=== PATIENT | female | born 1980 | race Hispanic/Latino ===

== ENCOUNTER 2019-05-02 13:29 | Inpatient (IN) | payer BC, OTHER ==
[~2019-05-02] VITALS: Ht 154.9 cm; Wt 73.5 kg
--- OUTSIDE RECORDS SUMMARY | 2019-05-02 13:35 | XMS REPORT ---
[facility] Address Unknown Phone Unavailable Care Team Providers Care Ward Service Supervisor Name Role Phone Unavailable Unavailable Payers Payer Name Policy Type Policy Number Effective Date Expiration Date Problems This patient has no known problems. Allergies, Adverse Reactions, Alerts Allergy Name Allergy Type Status Severity Reaction(s) Onset Date Inactive Date Treating Clinician Comments ibuprofen DA Active SV 2019-04-17 00:00:00 No Known Allergies DA Active U 2016-01-16 00:00:00 Medications This patient has no known medications. Results Test Description Test Time Test Comments Text Results Atomic Results Result Comments BASIC METABOLIC PANEL 2019-04-19 06:38:00 SODIUM (test code=NA) 142 mmol/L 136-145 POTASSIUM (test code=K) 4.0 mmol/L 3.5-5.1 CHLORIDE (test code=CL) 111.0 mmol/L 98-107 CARBON DIOXIDE (test code=CO2) 24.0 mmol/L 21-32 ANION GAP (test code=GAP) 11.0 10-20 GLUCOSE (test code=GLU) 98 mg/dL 74-106 BLOOD UREA NITROGEN (test code=BUN) 12 mg/dL 7-18 GLOMERULAR FILTRATION RATE (test code=GFR) > 60 mL/min >=60 Estimated GFR by using Modified MDRD formula.Chronic kidney disease is defined as either kidney damageor GFR <60 mL/min/1.73 m2 for >3 months. CREATININE (test code=CREAT) 0.70 mg/dL 0.55-1.02 Note change in reference range due to change in reagent. BUN/CREATININE RATIO (test code=BUN/CREA) 16.6 10-20 CALCIUM (test code=CA) 8.0 mg/dL 8.5-10.1 - CT ABD PELVIS W/O [id number] 19:32:00 Name: DIOGENES RALPH [facility] : 1980 Age/S: 39 / F [address] [facility] Unit #: [id number] Loc: [place] [address] Phys: Ruth Knutson MD Acct: [id number] Dis Date: Status: REG ER PHONE #: [phone] Exam Date: 04/17/20191927 FAX #: [phone] Reason: L flank pain EXAMS: CPT CODE: [id number] CT ABD PELVIS W/O CONT 33762 REASON FOR EXAM: L flank pain EXAM ORDER DATE: 04/17/2019 6:55 PM Ordering M.D.: Ruth Knutson MD PROCEDURE: - CT ABD PELVIS W/O CONT noncontrast axial CT images were acquired through the abdomen/pelvis at 5 mm intervals. Sagittal and coronal reformatted images were generated. Automated exposure control was utilized for this reduction. Phases of contrast: None COMPARISON: Noncontrast CT of the abdomen and pelvis July 20, 2016 FINDINGS: The absence of IV contrast limits sensitivity of this exam for the detection of soft tissue pathology Visualized thorax: Grossly normal Hepato biliary system: Decreased attenuation of the hepatic parenchyma relative t o the spleen suggest steatosis. Gallbladder is grossly within normal limit s Pancreas: Grossly normal Spleen: Grossly normal Adrenal glands: Grossly normal Genitourinary system: P unctate stones are present in both kidneys. There is also left-sided hydro ureteronephrosis, also seen on the prior examination. There is a stone in the distal left ureter () which measures 5 mm in size. Urinary bladder and reproductive organs are within normal limits. Gastroint estinal tract and appendix: Grossly normal Abdominal vascular stru ctures: Grossly normal Peritoneum and retroperitoneum: No free flu id or free air. No omental or mesenteric masses. No abnormal lymph nodes . PAGE 1 Signed Report (CO NTINUED) Name: DIOGENES RALPH [facility] : 1980 Age/S: 39 / F [address] Unit #: [id number] Loc: [place] [address] Phys: Ruth Kumar MD Acct: [id number] Dis Date: Status: REG ER P FARIDA #: [phone] Exam Date: 04/17/20191927 FAX #: [phone] Reason: L flank pain EX AMS: CPT CODE: [id number] CT A BD PELVIS W/O CONT 35710 <Continued> Musculoskeletal structures and abdominal wall: Grossly normal IMPRESSION: Distal left ureteral 5 mm stone with ipsilateral hydro ureteronephrosis suggesting ureteral obstruction. Additional pun ctate stones are present in both kidneys. Steatosis of the liver. at 193 Reported and signed by: Daryn Berumen MD CC: Priyank Uribe; Ruth Knutson MD Technologist:Zeb Montes, RT(R)(CT) CTDI: DLP: Trnscb Date/Time: 04/17/2019 (1931) [email or web address] Orig Print D/T: S: 04/17/2019 (1934) PAGE 2 Signed Report UR HCG [id number] 19:01:00* Test Item Value Reference Range Comments UR HCG QUAL (test code=HCGQLU) NEGATIVE This HCGQL test is NOT applicable for MALE patients.Check with nurse about probable order error.If Tumor Marker Test needed, nurse should order test "HCGTU"(Test #[id number]) URINALYSIS [id number] 19:00:00* Test Item Value Reference Range Comments UA COLOR (test code=COLU) Light-Yellow YELLOW UA APPEARANCE (test code=APPU) Cloudy CLEAR UA GLUCOSE DIPSTICK (test code=DGLUU) NEGATIVE mg/dL NEGATIVE UA BILIRUBIN DIPSTICK (test code=BILU) NEGATIVE mg/dL NEGATIVE UA KETONE DIPSTICK (test code=KETU) NEGATIVE mg/dL NEGATIVE UA SPECIFIC GRAVITY (test code=SGU) 1.018 1.001-1.035 UA BLOOD DIPSTICK (test code=CHANDU) 1.0 mg/dL (3+) mg/dL NEGATIVE UA PH DIPSTICK (test code=CARLOS) 5.5 5.0-8.0 UA PROTEIN DIPSTICK (test code=PROU) 20 (Trace) mg/dL NEGATIVE UA UROBILINIOGEN DIPSTICK (test code=URO) Normal mg/dL NEGATIVE UA NITRITE DIPSTICK (test code=FLOR) NEGATIVE NEGATIVE UA LEUKOCYTE ESTERASE W REFLEX (test code=LEUUR) 250 Gibson/uL (2+) Gibson/uL NEGATIVE UA WBC (test code=WBCU) 11-20 per HPF 0-5 UA RBC (test code=RBCU) 50-100 #/HPF 0-5 UA EPITHELIAL CELLS (test code=EPIU) FEW per HPF FEW UA BACTERIA (test code=BACU) FEW #/HPF NONE UA HYALINE CAST (test code=HYALU) 3-5 #/LPF 0-5 UA MUCUS (test code=MUCU) FEW #/LPF FEW Urine Source? Clean CatchURINALYSIS [id number] 18:52:00* Test Item Value Reference Range Comments UA COLOR (test code=COLU) Light-Yellow YELLOW UA APPEARANCE (test code=APPU) Cloudy CLEAR UA GLUCOSE DIPSTICK (test code=DGLUU) NEGATIVE mg/dL NEGATIVE UA BILIRUBIN DIPSTICK (test code=BILU) NEGATIVE mg/dL NEGATIVE UA KETONE DIPSTICK (test code=KETU) NEGATIVE mg/dL NEGATIVE UA SPECIFIC GRAVITY (test code=SGU) 1.018 1.001-1.035 UA BLOOD DIPSTICK (test code=CHANDU) 1.0 mg/dL (3+) mg/dL NEGATIVE UA PH DIPSTICK (test code=CARLOS) 5.5 5.0-8.0 UA PROTEIN DIPSTICK (test code=PROU) 20 (Trace) mg/dL NEGATIVE UA UROBILINIOGEN DIPSTICK (test code=URO) Normal mg/dL NEGATIVE UA NITRITE DIPSTICK (test code=FLOR) NEGATIVE NEGATIVE UA LEUKOCYTE ESTERASE W REFLEX (test code=LEUUR) 250 Gibson/uL (2+) Gibson/uL NEGATIVE UA WBC (test code=WBCU) per HPF 0-5 UA RBC (test code=RBCU) per HPF 0-5 UA EPITHELIAL CELLS (test code=EPIU) per HPF Few UA BACTERIA (test code=BACU) per HPF NONE Urine Source? Clean CatchHCG SERUM [id number] 18:31:00* Test Item Value Reference Range Comments HCG SERUM BETA (test code=HCG) < 1.0 mIU/mL 0-3 INTERPRETATION:B-HCG LEVELS <5 SHOULD BE CONSIDERED "NEGATIVE." *WHEN BODERLINE RESULTS ARE ENCOUNTERED,PATIENT SAMPLESSHOULD BE REDRAWN 48 HOURS. 0-1 WEEKS AFTER CONCEPTION 5-50 MIU/ML1-2 WEEKS AFTER CONCEPTION 50-500 MIU/ML2-3 WEEKS AFTER CONCEPTION 100 -5,000 MIU/ML3-4 WEEKS AFTER CONCEPTION 500-10,000 MIU/ML4-5 WEEKS AFTER CONCEPTION 1000 -50,000 MIU/ML5-6 WEEKS AFTER CONCEPTION 10,000-100,000 MIU/ML6-8 WEEKS AFTER CONCEPTION 15,000- 200,000 MIU/ML2-3 MONTHS AFTER CONCEPTION 10,000-100,000 MIU/ML - US PREG 1ST [id number] 18:20:00 Name: DIOGENES RALPH [facility] : 1980 Age/S: 39 / F [address] [facility] Unit #: [id number] Loc: [place] [address] Phys: Ruth Knutson MD Acct: [id number] Dis Date: Status: REG ER PHONE #: [phone] Exam Date: 04/17/2019 0455 FAX #: [phone] Reason: POSITIVE EXAMS: CPT CODE: [id number] US PREG 1ST TRIMTR 81787 REASON FOR EXAM: POSITIVE EXAM ORDER DATE: 04/17/2019 5:24 PM Attending M.D.: Ruth Knutson MD PROCEDURE: - US PREG 1ST TRIMTR, - US PREG UT TRANSVAGINAL Technique: Grayscale images, color doppler, and spectral doppler images of the uterus and ovaries were obtained utilizing A transabdominal and transvaginal approach. Comparison study: CT abdomen and pelvis generated 19/07/2016 is available for review FINDINGS: The patient had a positive test at home Uterus: size: 7.2 x 4.2 x 4.0 cm using transabdominal measurements echogenicity/masses: Normal echogenicity with no myometrial masses endometrium: 3.7 mm Right ovary: size: 3.3 x 1.8 x 2.5 cm cysts/masses: None Doppler findings: Normal arterial and venous waveforms. adnexal masses: None Left ovary: size: 2.8 x 1.4 x 2.0 cm cysts/masses: None Doppler findings: Normal arterial and venous waveforms. adnexal masses: None Free fluid: No fluid seen in the cul-de-sac. IMPRESSION: No visualized int rauterine is seen however the last menstrual period was less t cesar 3 weeks prior (no visualized gestational sac may be due to early sta ge of ). Correlate with beta hCG. Otherwise sonographic ally unremarkable pelvis. PAGE 1 Signed Report (CONTINUED) Name: AMELIA RALPHKENRICKDONELL ANUPAM [facility] : 1980 Age/S: 39 / F [address] Unit #: [id number] Loc: [place] [address] Phys: Ruth Knutson MD Acct: [id number] Dis Date: Status: REG ER PHONE #: [phone] Exam Date: 04/17/2019 1737 FAX #: [phone] Reason: POSITIVE EXAMS: CPT CODE: [id number] US PREG 1ST TRIMTR 84079 < Continued> at 1820 Reported and signed by: Daryn Berumen MD CC: Ruth Knutson MD Technologist: JULI CEJA Trnscb Date/Time: 04/17/2019 (1819) [email or web address] Orig Print D/T: S: 04/17/2019 (1822) Probe: PAGE 2 Signed Report - US PREG UT [id number] 18:20:00 Name: AMELIA RALPHJOSHUALea ESPARZABO [facility] : 1980 Age/S: 39 / F [address] Unit #: [id number] Loc: [place] [address] Phys: Ruth Knutson MD Acct: [id number] Dis Date: Status: REG ER PHONE #: [phone] Exam Date: 04/17/2019 1737 FAX #: [phone] Reason: left lower quadrant pain, positive home preg te EXAMS: CPT CODE: [id number] US PREG UT TRANSVAGINAL 26033 REASON FOR EXAM: POSITIVE EXAM ORDER DATE: 04/17/2019 5:24 PM Attending M.D.: Ruth Knutson MD PROCEDURE: - US PREG 1ST TRIMTR, - US PREG UT TRANSVAGINAL Technique: Grayscale images, color doppler, and spectral doppler images of the uterus and ovaries were obtained utilizing A transabdominal and transvaginal approach. Comparison study: CT abdomen and pelvis generated 19/07/2016 is available for review FINDINGS: The patient had a positive test at home Uterus: size: 7.2 x 4.2 x 4.0 cm using transabdominal measurements echogenicity/masses: Normal echogenicity with no myometrial masses endometrium: 3.7 mm Right ovary: size: 3.3 x 1.8 x 2.5 cm cysts/masses: None Doppler findings: Normal arterial and venous waveforms. adnexal masses: None Left ovary: size: 2.8 x 1.4 x 2.0 cm cysts/masses: None Doppler findings: Normal arterial and venous waveforms. adnexal masses: None Free fluid: No fluid seen in the cul-de-sac. IMPRESSION: No visualized int rauterine is seen however the last menstrual period was less t cesar 3 weeks prior (no visualized gestational sac may be due to early sta ge of ). Correlate with beta hCG. Otherwise sonographic ally unremarkable pelvis. PAGE 1 Signed Report (CONTINUED) Name: DIOGENES RALPH [facility]ikel [facility]issy : 1980 Age/S: 39 / F [address] Unit #: [id number] Loc: [place] [address] Phys: Ruth Knutson MD Acct: [id number] Dis Date: Status: REG ER PHONE #: [phone] Exam Date: 04/17/2019 1737 FAX #: [phone] Reason: left lower quadrant pain, positive home preg te EXAMS: CPT CODE: [id number] US PREG UT TRANSVAGINAL 28874 < Continued> at 1820 Reported and signed by: Daryn Berumen MD CC: Ruth Knutson MD Technologist: JULI CEJA Trnscb Date/Time: 04/17/2019 (1819) [email or web address] Orig Print D/T: S: 04/17/2019 (1822) Probe: [id number] PAGE 2 Signed Report - US RETRO [id number] 18:17:00 Name: DIOGENES RALPH [facility] : 1980 Age/S: 39 / F [address] [facility] Unit #: [id number] Loc: [place] [address] Phys: Justin Knutson MD Acct: [id number] Di s Date: Status: REG ER PHONE #: [phone] Exam Date: 04/17/2019 1722 FAX #: Reason: L flank pain EXAMS: CPT CODE: [id number] US RETRO LTD 93841 REASON FOR EXAM: L flank pain EXAM ORDER DATE: 04/17/2019 3:36 PM Att ending M.D.: Ruth Knutson MD PROCEDURE: - US RETRO LTD Comparison: CT abdomen and pelvis July 20, 2016 FINDI NGS: Right kidney: parenchyma echogenicity: [facility] size: 11.3 x 5.2 x 4.0 cm. stones: Present. The largest stone is located in the midpole of the kidney and measures 8 mm in size cy sts/masses: none hydronephrosis: none Left kidney: p arenchyma echogenicity: Normal echogenicity size: 12.4 x 7.0 x 5.1 cm. stones: Present. The largest stone is located in the mid pole and janell ures 1.1 cm cysts/masses: none hydronephrosis: Moderate Urinary Bladder: Ureteral jets: Visualized bilaterally Intralumin al masses/debris: None Wall thickness: Normal Outpouching: None IMPRESSION: Nonobstructing stones in the right kidney. Stones within the left kidney with moderate hydronephrosis. Visualiza tion of the left ureteral jets indicates of the left ureter is patent. T his hydronephrosis was also present in 2017 (secondary to an obstructing ureteral stone at that time) and may be a chronic finding. PAGE 1 Signed Report (CONTINUED) Name: DIOGENES CAMPA [facility] : [birth year] Age/S: 39 / F [address] [facility] Unit #: [id number] Loc: [place] [address] Phys: Ruth Knutson MD Acct: [id number] Dis Date: Status: REG ER PHONE #: [phone] Exam Date: 04/17/2019 1722 FAX #: [phone] R shabnam: L flank pain EXAMS: CPT CODE: [id number] [facility] [address] <Continued> at 1817 Reported and signed by: Daryn Berumen MD CC: Ruth Knutson MD Technologist: JULI CEJA Trnscb Date/Time: 04/17/2019 (1816) [id number] Orig Print D/T: S: 04/17/2019 (1819) Probe: PAGE 2 Signed Re port BASIC METABOLIC [id number] 17:33:00* Test Item Value Reference Range Comments SODIUM (test code=NA) 142 mmol/L 136-145 POTASSIUM (test code=K) 3.9 mmol/L 3.5-5.1 CHLORIDE (test code=CL) 110.0 mmol/L 98-107 CARBON DIOXIDE (test code=CO2) 26.0 mmol/L 21-32 ANION GAP (test code=GAP) 9.9 10-20 GLUCOSE (test code=GLU) 97 mg/dL 74-106 BLOOD UREA NITROGEN (test code=BUN) 19 mg/dL 7-18 GLOMERULAR FILTRATION RATE (test code=GFR) > 60 mL/min >=60 Estimated GFR by using Modified MDRD formula.Chronic kidney disease is defined as either kidney damageor GFR <60 mL/min/1.73 m2 for >3 months. CREATININE (test code=CREAT) 0.90 mg/dL 0.55-1.02 Note change in reference range due to change in reagent. BUN/CREATININE RATIO (test code=BUN/CREA) 20.3 10-20 CALCIUM (test code=CA) 8.5 mg/dL 8.5-10.1 HEPATIC FUNCTION [id number] 17:33:00* Test Item Value Reference Range Comments TOTAL PROTEIN (test code=PROT) 8.1 gram/dL 6.4-8.2 ALBUMIN (test code=ALB) 3.9 g/dL 3.4-5.0 GLOBULIN (test code=GLOB) 4.2 gram/dL 2.7-4.2 ALBUMIN/GLOBULIN RATIO (test code=A/G) 0.9 0.75-1.50 BILIRUBIN TOTAL (test code=BILT) 0.30 mg/dL 0.0-1.0 BILIRUBIN DIRECT (test code=BILD) 0.08 mg/dL 0.0-0.20 SGOT/AST (test code=AST) 31 IUnit/L 15-37 SGPT/ALT (test code=ALT) 79 IUnit/L 12-78 ALKALINE PHOSPHATASE TOTAL (test code=ALKP) 100 IUnit/L 45-117 Note change in reference range due to change in reagent. [id number] 17:33:00* Test Item Value Reference Range Comments LIPASE (test code=LIP) 152 U/L 73.0-393.0 HCG SERUM [id number] 17:33:00* Test Item Value Reference Range Comments HCG SERUM QUAL (test code=HCGQL) NEGATIVE BASIC METABOLIC [id number] 17:30:00* Test Item Value Reference Range Comments SODIUM (test code=NA) 142 mmol/L 136-145 POTASSIUM (test code=K) 3.9 mmol/L 3.5-5.1 CHLORIDE (test code=CL) 110.0 mmol/L 98-107 CARBON DIOXIDE (test code=CO2) mmol/L 21-32 ANION GAP (test code=GAP) 10-20 GLUCOSE (test code=GLU) mg/dL 74-106 BLOOD UREA NITROGEN (test code=BUN) mg/dL 7-18 GLOMERULAR FILTRATION RATE (test code=GFR) mL/min >=60 CREATININE (test code=CREAT) mg/dL 0.55-1.02 BUN/CREATININE RATIO (test code=BUN/CREA) 10-20 CALCIUM (test code=CA) mg/dL 8.5-10.1 HEPATIC FUNCTION [id number] 17:30:00* Test Item Value Reference Range Comments TOTAL PROTEIN (test code=PROT) gram/dL 6.4-8.2 ALBUMIN (test code=ALB) g/dL 3.4-5.0 GLOBULIN (test code=GLOB) gram/dL 2.7-4.2 ALBUMIN/GLOBULIN RATIO (test code=A/G) 0.75-1.50 BILIRUBIN TOTAL (test code=BILT) mg/dL 0.0-1.0 BILIRUBIN DIRECT (test code=BILD) mg/dL 0.0-0.20 SGOT/AST (test code=AST) IUnit/L 15-37 SGPT/ALT (test code=ALT) IUnit/L 12-78 ALKALINE PHOSPHATASE TOTAL (test code=ALKP) IUnit/L 45-117 [id number] 17:30:00* Test Item Value Reference Range Comments LIPASE (test code=LIP) U/L 73.0-393.0 HCG SERUM [id number] 17:30:00* Test Item Value Reference Range Comments HCG SERUM QUAL (test code=HCGQL) NEGATIVE CBC W/O [id number] 17:14:00* Test Item Value Reference Range Comments WHITE BLOOD CELL (test code=WBC) 10.2 K/mm3 4.5-12.5 RED BLOOD CELL (test code=RBC) 4.72 mill/mm3 3.7-5.2 HEMOGLOBIN (test code=HGB) 12.9 gram/dL 11.5-15.5 HEMATOCRIT (test code=HCT) 40.8 % 36.0-46.0 MEAN CELL VOLUME (test code=MCV) 86.4 fL 80-98 MEAN CELL HGB (test code=MCH) 27.3 picogram 27.0-33.0 MEAN CELL HGB CONCETRATION (test code=MCHC) 31.6 gram/dL 33.0-36.0 RED CELL DISTRIBUTION WIDTH (test code=RDW) 12.6 % 11.6-16.2 PLATELET COUNT (test code=PLT) 266 K/mm3 150-450 MEAN PLATELET VOLUME (test code=MPV) 10.5 fL 6.7-11.0 CBC W/O [id number] 17:13:00* Test Item Value Reference Range Comments WHITE BLOOD CELL (test code=WBC) K/mm3 4.5-12.5 RED BLOOD CELL (test code=RBC) mill/mm3 3.7-5.2 HEMOGLOBIN (test code=HGB) 12.9 gram/dL 11.5-15.5 HEMATOCRIT (test code=HCT) 40.8 % 36.0-46.0 MEAN CELL VOLUME (test code=MCV) fL 80-98 MEAN CELL HGB (test code=MCH) picogram 27.0-33.0 MEAN CELL HGB CONCETRATION (test code=MCHC) gram/dL 33.0-36.0 RED CELL DISTRIBUTION WIDTH (test code=RDW) % 11.6-16.2 PLATELET COUNT (test code=PLT) K/mm3 150-450 MEAN PLATELET VOLUME (test code=MPV) fL 6.7-11.0
[2019-05-02] MEDS ORDERED: SODIUM CHLORIDE 0.9% 1000ML 1,000 ML IV STA (13:36)
[2019-05-02] MEDS ORDERED: SODIUM CHLORIDE 0.9% 1000ML 1,000 ML IV SCH (13:45)
[2019-05-02 13:58] LABS: BASOPHILS % 0.2 % (0.0-1.0); HEMATOCRIT 37.2 % (34.2-44.1); HEMOGLOBIN 12.3 g/dL (12.0-16.0); LYMPHOCYTES % 23.6 % (18.0-39.1); MEAN CORPUSCULAR HEMOGLOBIN 27.6 pg (28-32); MEAN CORPUSCULAR HGB CONC 33.1 g/dL (31-35); MEAN CORPUSCULAR VOLUME 83.4 fL (81-99); MONOCYTES % 11.9 % (4.4-11.3); NEUTROPHILS # (AUTO) 10.9 (2.1-6.9); PLATELET COUNT 244 x10e3/uL (140-360); RED BLOOD COUNT 4.46 x10e6/uL (3.6-5.1); RED CELL DISTRIBUTION WIDTH 12.7 % (11.7-14.4)
[2019-05-02] MEDS ORDERED: ACETAMINOPHEN 1000 MG/100 ML IV NR (14:00)
[2019-05-02] MEDS ORDERED: VANCOMYCIN 1GM/NS 250 ML 250 ML IV ONE (14:00)
[2019-05-02 14:03] LABS: INR 1.01; PARTIAL THROMBOPLASTIN TIME 35.3 seconds (23.8-35.5); PROTHROMBIN TIME 13.8 seconds (11.9-14.5)
[2019-05-02 14:12] LABS: ALANINE AMINOTRANSFERASE 99 IU/L (0-55); ALBUMIN 3.5 g/dL (3.5-5.0); ALBUMIN/GLOBULIN RATIO 0.7 (0.8-2.0); ALKALINE PHOSPHATASE 123 IU/L (40-150); ANION GAP 16.5 mmol/L (8-16); BLOOD UREA NITROGEN 12 mg/dL (7-26); BUN/CREATININE RATIO 14 (6-25); CALCIUM 9.5 mg/dL (8.4-10.2); CARBON DIOXIDE 21 mmol/L (22-29); CHLORIDE 99 mmol/L (98-107); CREATININE, SERUM 0.85 mg/dL (0.57-1.11); EST GLOMERULAR FILTRATION RATE > 60 ML/MIN (60-); GLUCOSE 102 mg/dL (74-118); POTASSIUM 3.5 mmol/L (3.5-5.1); SODIUM 133 mmol/L (136-145)
[2019-05-02] MEDS: PIPER-TAZ 3.375 GM 50 ML IV SCH ×3 (14:23→23:08)
--- NOTE | 2019-05-02 14:48 | Diagnostic Imaging Report ---
EXAMINATION: CHEST SINGLE (PORTABLE) INDICATION: ^ERMD ORDER ^Y COMPARISON: None FINDINGS: AP view TUBES and LINES: None. LUNGS: Lungs are well inflated. Ill-defined reticular airspace opacity in the right lower lobe. PLEURA: No pleural effusion or pneumothorax. HEART AND MEDIASTINUM: The cardiomediastinal silhouette is unremarkable.. BONES AND SOFT TISSUES: No acute osseous lesion. Soft tissues are unremarkable. UPPER ABDOMEN: No free air under the diaphragm. IMPRESSION: Radiographic findings suggestive of right lower lobe pneumonia. Recommend follow-up chest radiograph in 4-6 weeks. Signed by: Dr. Marilynn Santos M.D. on 05/02/2019 2:45 PM
[2019-05-02 14:52] LABS: BILIRUBIN,URINE SMALL (NEGATIVE); CLARITY,URINE SL CLOUDY (CLEAR); COLOR,URINE YELLOW (YELLOW); KETONES,URINE 2+ (NEGATIVE); LEUKOCYTE ESTERASE ,URINE NEGATIVE (NEGATIVE); NITRITE,URINE NEGATIVE (NEGATIVE); PROTEIN,URINE DIPSTICK 2+ (NEGATIVE); URINE UROBILINOGEN 4 mg/dL (0.2 - 1)
[2019-05-02 14:55] LABS: AMORPHOUS SEDIMENT,URINE MODERATE (FEW); BACTERIA,URINE MANY /HPF; EPITHELIAL CELLS,URINE MANY /LPF; WBC,URINE (MAN) 21-50 /HPF (0-5)
[2019-05-02] MEDS: SODIUM CHLORIDE 0.9% 1000ML 1,000 ML IV SCH (16:26)
[2019-05-02] MEDS ORDERED: MORPHINE SULFATE INJ 4 MG/ML INJ 1ML IV PRN (16:30)
--- NOTE | 2019-05-02 17:55 | Diagnostic Imaging Report ---
EXAM: CT Abdomen and Pelvis WITHOUT contrast INDICATION: ^Stone Protocol ^[id number] ^1720 ^Y COMPARISON: None. TECHNIQUE: Abdomen and pelvis were scanned utilizing a multidetector helical scanner from the lung base to the pubic symphysis without administration of IV contrast. Absence of intravenous contrast decreases sensitivity for detection of focal lesions and vascular pathology. Coronal and sagittal reformations were obtained. Routine protocol was performed. IV CONTRAST: None. ORAL CONTRAST: Water RADIATION DOSE: Total DLP: 546 mGy*cm Estimated effective dose: (DLP x 0.015 x size factor) mSv COMPLICATIONS: None FINDINGS: LINES and TUBES: Leftward lateral stent with proximal aspect of the catheter in the left renal pelvis and distal tip on the right and inferior side of the urinary bladder. LOWER THORAX: Subsegmental atelectasis in both lung bases. HEPATOBILIARY: No focal hepatic lesions. No biliary ductal dilation. GALLBLADDER: No radio-opaque stones or sludge. No wall thickening. SPLEEN: No splenomegaly. PANCREAS: No focal masses or ductal dilatation. ADRENALS: No adrenal nodules KIDNEYS/URETERS: No hydronephrosis. No cystic or solid mass lesions. Few 2-4 mm left renal stones with minimal hydronephrosis. 2 mm nonobstructing right renal stone on series 3, image 86. 10 mm calcified stone in the proximal left ureter adjacent to the stent (coronal image 59). No additional calcified stones in the ureters. GI TRACT: No abnormal distention, wall thickening, or evidence of bowel obstruction. Appendix is not visualized. PELVIC ORGANS/BLADDER: The urinary bladder is moderately distended without calcified stones. The uterus appears unremarkable. LYMPH NODES: No lymphadenopathy. VESSELS: Unremarkable. PERITONEUM / RETROPERITONEUM: No free air or fluid. BONES: Unremarkable. SOFT TISSUES: Unremarkable. IMPRESSION: 1. Left ureteral stent with 10 mm calcified stone in the proximal left ureter adjacent to the stent. No surrounding fluid collections or fat stranding. 2. Bilateral nephrolithiasis, left greater than right. Minimal left hydronephrosis. Signed by: Dr. Marilynn Santos M.D. on 05/02/2019 5:51 PM
[2019-05-02 19:08] VITALS: BP 102/65
[2019-05-02 20:00] VITALS: BP 115/72
[2019-05-02] MEDS: ONDANSETRON HCL INJ 2MG/ML 2ML 2 MG/ML VIAL IV PRN (20:17)
[2019-05-02 20:27] VITALS: BP 115/72
[2019-05-02] MEDS ORDERED: HYDROMORPHONE 2MG/ML 2 MG/ML ML IV PRN (20:30)
[2019-05-02] MEDS: ACETAMINOPHEN 325 MG TAB PO PRN (20:37)
[2019-05-02 21:07] VITALS: BP 115/72
[2019-05-02 22:07] VITALS: BP 117/70
[2019-05-03] VITALS (9 sets, daily range): BP systolic 102–122; BP diastolic 55–81
[2019-05-03] MEDS: SODIUM CHLORIDE 0.9% 1000ML 1,000 ML IV SCH ×2 (02:33→23:57)
[2019-05-03] MEDS: ACETAMINOPHEN 325 MG TAB PO PRN ×2 (02:37→20:34)
[2019-05-03] MEDS: PIPER-TAZ 3.375 GM 50 ML IV SCH ×4 (05:10→23:57)
[2019-05-03 06:10] LABS: BASOPHILS % 0.3 % (0.0-1.0); EOSINOPHILS % 0.1 % (0.0-6.0); HEMATOCRIT 29.9 % (34.2-44.1); HEMOGLOBIN 9.4 g/dL (12.0-16.0); LYMPHOCYTES # (AUTO) 2.5 (1.0-3.2); LYMPHOCYTES % 23.3 % (18.0-39.1); MEAN CORPUSCULAR HEMOGLOBIN 26.9 pg (28-32); MEAN CORPUSCULAR HGB CONC 31.4 g/dL (31-35); MEAN CORPUSCULAR VOLUME 85.7 fL (81-99); MONOCYTES # (AUTO) 1.4 (0.2-0.8); MONOCYTES % 12.6 % (4.4-11.3); NEUTROPHILS # (AUTO) 6.8 (2.1-6.9); NEUTROPHILS % 63.2 % (38.7-80.0); PLATELET COUNT 168 x10e3/uL (140-360); RED BLOOD COUNT 3.49 x10e6/uL (3.6-5.1); RED CELL DISTRIBUTION WIDTH 12.9 % (11.7-14.4)
[2019-05-03 06:32] LABS: ALANINE AMINOTRANSFERASE 71 IU/L (0-55); ALBUMIN 2.7 g/dL (3.5-5.0); ALBUMIN/GLOBULIN RATIO 0.7 (0.8-2.0); ALKALINE PHOSPHATASE 94 IU/L (40-150); ANION GAP 13.6 mmol/L (8-16); BLOOD UREA NITROGEN 8 mg/dL (7-26); BUN/CREATININE RATIO 11 (6-25); CALCIUM 7.9 mg/dL (8.4-10.2); CARBON DIOXIDE 19 mmol/L (22-29); CHLORIDE 110 mmol/L (98-107); CREATININE, SERUM 0.73 mg/dL (0.57-1.11); EST GLOMERULAR FILTRATION RATE > 60 ML/MIN (60-); GLUCOSE 107 mg/dL (74-118); POTASSIUM 3.6 mmol/L (3.5-5.1); SODIUM 139 mmol/L (136-145)
--- NOTE | 2019-05-03 07:30 | NUR ---
PT IN BED RESTING NO S/S DISCOMFORT,DENIES PAIN.NO DISTRESS NTOED.
[2019-05-03] MEDS: ONDANSETRON HCL INJ 2MG/ML 2ML 2 MG/ML VIAL IV PRN (11:00)
--- NOTE | 2019-05-03 12:51 | Diagnostic Imaging Report ---
Chest, 2 views History: Pneumonia Comparison: none Findings: The lungs are hypoexpanded, but grossly clear. Normal size heart. No pleural effusion or pneumothorax. Impression: No acute findings in the chest Signed by: Adrian Tapia MD on 05/03/2019 12:47 PM
--- NOTE | 2019-05-03 15:16 | NUR ---
Nutrition Intervention Note RD Recommendation(s) for Physician: - When feasible, ADAT to goal of Regular Pt meets criteria for moderate protein calorie malnutrition Plan of Care: RD following, monitoring for tolerance and adequacy Nutrition reason for involvement: Nutrition Risk Tr[facility] Assessment 05/03: 39 YOF admitted for pyelonephritis and SIRS, [facility]. Pt reports decreased appetite over the past 2 weeks with inability to tolerate po 2 days [employer]. Pt reports UBW of 185lb a month ago, noted significant wt loss of 12%. Pt reports reflux and nausea with CL diet current, states anything besides water is causing GI distress. Pt reports diarrhea today and yesterday. Pt discussed during am rounds. Will continue to monitor. Principal Problems/Diagnoses: pyelonephritis, SIRS PMH: renal stent placement, UTI GI: LBM 05/03- diarrhea Skin: intact Labs: 05/03: Na 139, K 3.6, BUN 8, Cr 0.73, Gluc 107 Meds: abx, zofran, dilaudid Ht: 61 in Wt: 162 lb BMI: 30.6 IBW: 105 lb Malnutrition Evaluation (05/03/19) The patient meets criteria for MODERATE protein-calorie malnutrition. Energy intake: <75% of estimated energy requirements for >7 days Weight loss: >5% in 1 month (Acute) Fat loss: None, bulging eye pads Muscle loss: none, shoulder round Supporting Evidence: Fluid accumulation: none Functional Status: no changes Nutrition Prescription (Diet Order): Clear liquid diet Estimated Nutritional Needs: 7325-8629 calories/day (22-25 kcal/kg IBW) 72-119 g protein/day (1.5-2.5 g pro/kg IBW) Diet Adequacy: Not meeting calorie needs, Not meeting protein needs Diet Tolerance: tolerance varies Diet Education Needs Assessment: Diet education not indicated, patient on temporary/transition diet. Nutrition Care Level: Mod Nutrition Diagnosis: Inadequate energy and protein intake related to pyelonephritis and SIRS as evidenced by poor appetite and wt loss loss. Goal: Patient will meet 75-100% of estimated needs by follow up Progress: N/A Interventions: -General healthful diet, Recommended Modifications, Collaboration with other providers Monitoring/Evaluation: -Total energy intake, Total protein intake Signed: Krista Shah RD, LD, CNSC
--- NOTE | 2019-05-03 16:57 | NUR ---
PT UP AMBULATING IN ESCOBAR ,DENIES PAIN ,NO DISTRESS NTOED
[2019-05-04] VITALS (9 sets, daily range): BP systolic 97–134; BP diastolic 62–70
[2019-05-04] MEDS: PIPER-TAZ 3.375 GM 50 ML IV SCH ×3 (05:21→17:59)
--- NOTE | 2019-05-04 07:45 | NUR ---
PT UP IN BED NO DISTRESS NTOED DENIES PAIN
--- NOTE | 2019-05-04 08:30 | NUR ---
DR MUIR HERE
--- NOTE | 2019-05-04 17:59 | NUR ---
PT UP IN BED DENIES PAIN ,AFEBRILE
--- NOTE | 2019-05-04 19:39 | NUR ---
Received bedside report from day nurse. Patient resting in bed. No s/s of distress or c/o pain at this time. All safety measures in place. Family at bedside. Will continue to monitor.
[2019-05-04] MEDS: SODIUM CHLORIDE 0.9% 1000ML 1,000 ML IV SCH (19:55)
[2019-05-05] VITALS: BP 112/70
[2019-05-05] MEDS: PIPER-TAZ 3.375 GM 50 ML IV SCH ×2 (00:35→05:17)
[2019-05-05 04:00] VITALS: BP 109/63
[2019-05-05] MEDS: SODIUM CHLORIDE 0.9% 1000ML 1,000 ML IV SCH (04:13)
--- NOTE | 2019-05-05 06:56 | NUR ---
RECEIVED REPORT FROM OFF GOING NURSE. WALKING ROUNDS DONE. PATIENT IS RESTING IN BED. NO S/S OF DISTRESS NOTED. FAMILY MEMBER AT BEDSIDE. CALL LIGHT WITHIN REACH. BED IN THE LOWEST POSITION
--- NOTE | 2019-05-05 07:16 | NUR ---
Bedside report given to day nurse. Patient resting in bed, no s/s of distress or c/o pain at this time. All safety measures in place. Family at bedside.
[2019-05-05 07:28] VITALS: BP 109/67
[2019-05-05 08:21] VITALS: BP 109/67
[2019-05-05] MEDS ORDERED: CIPRO500 MG PO (08:46)
--- NOTE | 2019-05-05 09:53 | NUR ---
RECEIVED DC ORDER FROM DR. MUIR. PATIENT IS IN STABLE CONDITION. IV LINE TO LEFT ANTECUBITAL DCD WITH TIP INTACT, PRESSURE APPLIED TO SITE, NO BLEEDING NOTED. DISCHARGE TEACHING PROVIDED TO PATIENT, SHE VERBALIZED UNDERSTANDING. DISCHARGE FOLDER WITH PRESCRIPTIONS ON HAND. PERSONAL ITEMS ON HAND. PATIENT ACCOMPANIED TO PRIVATE AUTO BY STAFF.
--- NOTE | 2019-05-06 05:49 | Discharge Summary ---
ADMITTING DIAGNOSES: 1. Urinary tract infection with enterococcus species. 2. Status post left ureteral stent. 3. Urolithiasis. HOSPITAL COURSE: Ms. Dumas is a 39-year-old lady, a patient of Dr. Priyank Uribe with past medical history significant for urolithiasis, obesity, and a pituitary microadenoma. She had a ureteral stent placed about two weeks ago by Dr. Dunn. She returns to the emergency room complaining about fever up to 103, left flank pain which is 10/10, and generalized malaise. Workup revealed white cell count of 17,000. UA had 21 to 50 wbc's per high-power field. With the impression of pyelonephritis, she was admitted to the hospital. She was started on IV antibiotics. Consultation was requested with Dr. Dunn. Urine culture was positive for growth of enterococcus species, which is tucker sensitive. Dr. Dunn has recommended discharge with culture appropriate antibiotics and he will see the patient later on his office. She is being discharged home in a stable condition. MD SUSANNE Murguia/SARATH /[id number]
== END 2019-05-05 09:56 | disposition home or self-care (01) | DRG 872 ==
LOC: ER 13:29 → ERHOLD 16:29 → MED/SURG3 18:45
PROVIDERS: ADMIT Internal Medicine; ATTEND Internal Medicine
DX: A41.81 Sepsis due to Enterococcus (principal); N12 Tubulo-interstitial nephritis, not specified as acute or chronic; B95.2 Enterococcus as the cause of diseases classified elsewhere; E66.01 Morbid (severe) obesity due to excess calories; Z68.30 Body mass index [BMI] 30.0-30.9, adult; Z96.0 Presence of urogenital implants; N21.1 Calculus in urethra
CPT/HCPCS: 36415; 71045; 71046; 74176; 80053; 81001; 81025; 83518; 83605; 83735; 85025; 85610; 85730; 87040; 87070; 87086; 87186; 87400; 93005; 99284; J2405; J2543; J3370; J7030

== ENCOUNTER 2021-10-15 08:32 | Emergency (ER) | payer OTHER ==
[~2021-10-15] VITALS: Ht 154.9 cm; Wt 73.5 kg
[~2021-10-15 08:32] MED LIST: CIPRO500 MG PO
[2021-10-15] MEDS ORDERED: ONDANSETRON HCL INJ 2MG/ML 2ML 2 MG/ML VIAL IV STA (08:41)
[2021-10-15] MEDS ORDERED: SODIUM CHLORIDE 0.9% 1000ML 1,000 ML IV STA (08:41)
[2021-10-15] MEDS ORDERED: Morphine 4mg Syringe 4 MG/ML INJ IV STA (08:41)
[2021-10-15 08:55] VITALS: BP 120/76
[2021-10-15 09:01] LABS: BASOPHILS # (AUTO) 0.1 (0.0-0.1); BASOPHILS % 0.5 % (0.0-1.0); EOSINOPHILS # (AUTO) 0.5 (0.0-0.4); EOSINOPHILS % 4.5 % (0.0-6.0); HEMATOCRIT 43.4 % (34.2-44.1); HEMOGLOBIN 14.4 g/dL (12.0-16.0); LYMPHOCYTES % 19.7 % (18.0-39.1); MEAN CORPUSCULAR HEMOGLOBIN 28.1 pg (28-32); MEAN CORPUSCULAR HGB CONC 33.2 g/dL (31-35); MEAN CORPUSCULAR VOLUME 84.8 fL (81-99); MONOCYTES # (AUTO) 0.6 (0.2-0.8); MONOCYTES % 5.8 % (4.4-11.3); NEUTROPHILS # (AUTO) 6.8 (2.1-6.9); PLATELET COUNT 240 x10e3/uL (140-360); RED BLOOD COUNT 5.12 x10e6/uL (3.6-5.1); RED CELL DISTRIBUTION WIDTH 12.8 % (11.7-14.4)
[2021-10-15 09:11] LABS: CLARITY,URINE TURBID (CLEAR); COLOR,URINE YELLOW (YELLOW); LEUKOCYTE ESTERASE ,URINE SMALL (NEGATIVE); NITRITE,URINE POSITIVE (NEGATIVE)
[2021-10-15 09:12] LABS: KETONES,URINE NEGATIVE (NEGATIVE); PROTEIN,URINE DIPSTICK TRACE (NEGATIVE); URINE UROBILINOGEN 0.2 mg/dL (0.2 - 1)
[2021-10-15 09:20] LABS: BACTERIA,URINE MANY /HPF; EPITHELIAL CELLS,URINE MODERATE /LPF; RBC,URINE >50 /HPF (0-5); WBC,URINE (MAN) >50 /HPF (0-5)
[2021-10-15 09:29] LABS: ALBUMIN 3.7 g/dL (3.5-5.0); ALBUMIN/GLOBULIN RATIO 0.9 (0.8-2.0); ANION GAP 12.9 mmol/L (8-16); CALCIUM 8.5 mg/dL (8.4-10.2); CREATININE, SERUM 1.06 mg/dL (0.57-1.11); POTASSIUM 3.9 mmol/L (3.5-5.1)
[2021-10-15] MEDS ORDERED: TYLENOL325 MG PO (09:44)
[2021-10-15] MEDS ORDERED: PIPERACILLIN/TAZOBACTAM 3.375 GM in SODIUM CHLORIDE 0.9% 50ML 50 ML IV ONE (10:00)
[2021-10-15 10:03] VITALS: BP 104/65
[2021-10-15] MEDS ORDERED: ONDANSETRON ODT4 MG PO (10:42)
[2021-10-15] MEDS ORDERED: CIPRO500 MG PO (10:42)
[2021-10-15] MEDS ORDERED: HYDROCODON-ACE1 EA11 PO (10:42)
== END 2021-10-15 11:55 | disposition home or self-care (01) ==
LOC: ER 08:40
DX: N20.0 Calculus of kidney (principal); N12 Tubulo-interstitial nephritis, not specified as acute or chronic; Z88.8 Allergy status to other drugs, medicaments and biological substances; Z98.890 Other specified postprocedural states
CPT/HCPCS: 36415; 74176; 80053; 81001; 81025; 83690; 85025; 87086; 99284; J2270; J2405; J2543; J7030; 87186